=== PATIENT | female | born 1965 | race African-American/Black ===

== ENCOUNTER 2018-12-26 10:27 | Emergency (ER) | payer MEDICAID ==
--- OUTSIDE RECORDS SUMMARY | 2018-12-26 10:34 | XMS REPORT | Continuity of Care Document ---
:1965 External Reference #:[id number] Author Name Neelam Wyatt NP (transmitted by agent of provider Kerrie Moya) Address [address] [place] [id number] Care Team Providers Name Role Phone Aleida Luna NP - Family Care Team Information [employer] [phone] Problems Description No Information Available Social History Type Date Description Comments Sex Unknown ETOH Use Occasionally consumes alcohol Tobacco Use Start: Unknown Patient is a current smoker, smokes every day Recreational Drug Use Current Drug User Marijuana daily Tobacco Use Start: Unknown Heavy tobacco smoker (more than 10 cigarettes/day) Smoking Status Reviewed: 12/10/18 Heavy tobacco smoker (more than 10 cigarettes/day) Exercise Type/Frequency Exercises regularly Allergies, Adverse Reactions, Alerts Active Allergies Reaction Severity Comments Date Latex rash 10/29/2018 Haldol altered sensation to muscles 10/29/2018 Medications Active Medications SIG Qnty Indications Ordering Provider Date Oxycodone-Acetaminophe 1 tab by mouth 12tabs Neelam Hogan 12/10/2018 n every 6 hours ISELA Wyatt 5-325mg Tablets as needed Claritin 1 by mouth Unknown 10mg Capsules every day Proair HFA 2 puffs every 4 Unknown 108(90Base) hours as needed mcg/Act Aerosol Levalbuterol Tartrate as needed Unknown 45mcg/Act Aerosol Metformin HCL 1 by mouth once Unknown 500mg a day Tablets Lisinopril 1 by mouth Unknown 5mg Tablets every day Motrin Ib as needed Unknown 200mg Capsules Immunizations Description No Information Available Vital Signs Date Vital Result Comment 12/10/2018 11:23am Height 67.5 inches 5'7.50" Weight 288.00 lb Heart Rate 76 /min BP Systolic Sitting 154 mmHg BP Diastolic Sitting 106 mmHg Respiratory Rate 16 /min Body Temperature 97.0 F BMI (Body Mass Index) 44.4 kg/m2 11/01/2018 1:55pm Height 67.5 inches 5'7.50" Weight 297.00 lb Heart Rate 72 /min BP Systolic Sitting 138 mmHg BP Diastolic Sitting 88 mmHg Respiratory Rate 18 /min Body Temperature 97.8 F BMI (Body Mass Index) 45.8 kg/m2 Results Description No Information Available Procedures Description No Information Available Medical Devices Description No Information Available Encounters Type Date Location Provider Dx Diagnosis Office Visit 11/01/2018 Surgical Pritesh Lehman, K42.9 Umbilical hernia 1:45p [facility] without obstruction or gangrene Assessments Date Code Description Provider 12/10/2018 K42.9 Umbilical hernia without obstruction or Neelam Wyatt NP gangrene 12/10/2018 Z01.818 Encounter for other preprocedural Neelam Wyatt NP examination 11/01/2018 K42.9 Umbilical hernia without obstruction or Pritesh Lehman MD, FACS gangrene Plan of Treatment Future Appointment(s):01/02/2019 11:00 am - Jil Benitez MD at [facility]01/08/2019 1:00 pm - Neelam Wyatt NP at [facility]12/31/2018 9:30 am - THOM Knight at [facility]12/31/2018 9:30 am - Pritesh Lehman MD, FACS at [facility]12/10/2018 - Neelam Wyatt NPK42.9 Umbilical hernia without obstruction or gangreneFollow up:POSTOP 01/08/19Z01.818 Encounter for other preprocedural examination Functional Status Description No Information Available Mental Status Description No Information Available Referrals Description No Information Available
--- OUTSIDE RECORDS SUMMARY | 2018-12-26 10:34 | XMS REPORT | Continuity of Care Document ---
:1965 External Reference #:[id number] Author Name Kerrie Moya Care Team Providers Name Role Phone Aleida Luna NP Primary Care Physician Unavailable Payers Date Identification Numbers Payment Provider Subscriber Policy Number: [id number] Medicaid [employer] Group Name: 1 1 [address] PayID: [id number] [place] [address] Family History Date Family Member(s) Observation Comments Father No Current Problems Mother Hypertension Mother Stroke Mother Diabetes Type II Mother Deep Venous Thrombosis (DVT) Social History Type Date Description Comments Sex Unknown Marital Status Single Occupation Self Employed ETOH Use Occasionally consumes alcohol Tobacco Use Start: Unknown Patient is a current smoker, smokes every day Recreational Drug Use Current Drug User Marijuana daily Tobacco Use Start: Unknown Heavy tobacco smoker (more than 10 cigarettes/day) Smoking Status Reviewed: 11/01/18 Heavy tobacco smoker (more than 10 cigarettes/day) Exercise Type/Frequency Does not exercise Allergies, Adverse Reactions, Alerts Active Allergies Reaction Severity Comments Date Latex rash 10/29/2018 Haldol altered sensation to muscles 10/29/2018 Medications Active Medications SIG Qnty Indications Ordering Provider Date Claritin 1 by mouth every Unknown 10mg Capsules day Proair HFA 2 puffs every 4 Unknown 108(90Base) hours as needed mcg/Act Aerosol Levalbuterol Tartrate as needed Unknown 45mcg/Act Aerosol Metformin HCL 1 by mouth once Unknown 500mg Tablets a day Lisinopril 1 by mouth every Unknown 5mg Tablets day Vital Signs Date Vital Result Comment 11/01/2018 1:55pm Height 67.5 inches 5'7.50" Weight 297.00 lb Heart Rate 72 /min BP Systolic Sitting 138 mmHg BP Diastolic Sitting 88 mmHg Respiratory Rate 18 /min Body Temperature 97.8 F BMI (Body Mass Index) 45.8 kg/m2 Plan of Treatment Future Appointment(s):01/08/2019 1:00 pm - Neelam Wyatt NP at [facility]12/10/2018 11:00 am - Neelam Wyatt NP at [facility]12/31/2018 9:30 am - THOM Knight at [facility]12/31/2018 9:30 am - Pritesh eLhman MD, FACS at [facility]12/05/2018 3:00 pm - Jil Benitez MD at [facility]11/01/2018 - Pritesh Lehman MD, FACSK42.9 Umbilical hernia without obstruction or gangreneRecommendations:surgical repair with mesh
[2018-12-26 10:50] VITALS: BP 138/83
--- NOTE | 2018-12-26 11:32 | UC ---
Skin Complaint HPI - HPI Summary HPI Summary: 53-year-old female who has had intermittent hives over the past 2 weeks. She has no known exposure however she does state that she has a lot of allergies. Denies any difficulty breathing and no wheezing. She states she has used her EpiPen twice over the past 2 days although she has had no throat closing, no facial swelling mostly some hives on her legs and severe itching. She states she took Benadryl 100 mg at 9:30 this morning. This point in time she is stable and alert and only have is one small hive area on her left thigh. - History of Current Complaint Chief Complaint: UCRash Time Seen by Provider: 12/26/18 11:08 Stated Complaint: rash Hx Obtained From: Patient Hx Last Menstrual Period: 12/11/18 ?: No Onset/Duration: Gradual Onset, Lasting Weeks Timing: Intermittent Episodes Lasting: Onset Severity: Mild Current Severity: Mild Pain Intensity: 0 Location: Diffuse, Other - Today the hives are no small patch on her left thigh , however she does have some itching of her feet. Character: Hives Aggravating Factor(s): Nothing Alleviating Factor(s): Antihistamines, Epinephrine Associated Signs & Symptoms: Positive: Negative Related History: Possible Reaction to: Environmental Exposure, Other: - Patient states she "has a lot of allergies". - Allergy/Home Medications Allergies/Adverse Reactions: Allergies Allergy/AdvReac Type Severity Reaction Status Date / Time haloperidol [From Haldol] Allergy sensitivity Verified 12/26/18 10:53 Latex, Natural Rubber Allergy Rash Verified 12/26/18 10:53 Home Medications: Home Medications Lisinopril TAB* [Prinivil TAB 5 MG*] 1 tab PO DAILY 12/26/18 [History Confirmed 12/26/18] metFORMIN* [Glucophage 500 MG TAB *] 500 tab PO DAILY WITH MEAL 12/26/18 [ History Confirmed 12/26/18] PMH/Surg Hx/FS Hx/Imm Hx Previously Healthy: Yes Endocrine History: Diabetes Respiratory History: Asthma - Surgical History Surgical History: None - Family History Known Family History: Positive: Non-Contributory - Social History Occupation: Employed Full-time Alcohol Use: Occasionally Substance Use Type: None Smoking Status (MU): Light Every Day Tobacco Smoker Review of Systems All Other Systems Reviewed And Are Negative: Yes Skin: Positive: Other - Intermittent hives over the past 2 weeks Is Patient Immunocompromised?: No Physical Exam Triage Information Reviewed: Yes Appearance: Well-Appearing, No Pain Distress, Well-Nourished Vital Signs: Initial Vital Signs Temp 98.2 F 12/26/18 10:42 Pulse 76 12/26/18 10:42 Resp 16 12/26/18 10:42 BP 138/83 12/26/18 10:42 Pulse Ox 97 12/26/18 10:42 Vital Signs Reviewed: Yes Eyes: Positive: Conjunctiva Clear ENT: Positive: Hearing grossly normal, Pharynx normal, TMs normal, Uvula midline Neck: Positive: Supple, Nontender, No Lymphadenopathy Respiratory: Positive: Lungs clear, Normal breath sounds, No respiratory distress, No accessory muscle use. Negative: Accessory muscle use, Rhonchi, Stridor, Wheezing Cardiovascular: Positive: RRR, No Murmur, Pulses Normal, Brisk Capillary Refill Musculoskeletal Exam: Normal Neurological Exam: Normal Psychological Exam: Normal Skin: Positive: Other - Patient presently has itchy feet but she has one small patch of hives on her left thigh. Course/Dx - Course Course Of Treatment: Patient was given prednisone 60 mg by mouth here and I'm going to continue a tapering dose of prednisone. She is going to continue Benadryl 25-50 mg every 6 hours. I'm also going to start her on Pepcid 20 mg by mouth twice a day 7 days. She is to follow-up with her primary care provider if no improvement and if she develops any difficulty breathing, facial swelling, throat closing or worsening hives she's go to the emergency room. - Diagnoses Provider Diagnosis: Hives of unknown origin Discharge ED - Sign-Out/Discharge Documenting (check all that apply): Patient Departure All imaging exams completed and their final reports reviewed: No Studies - Discharge Plan Condition: Fair Disposition: HOME Prescriptions: Famotidine TAB* [Pepcid 20 MG TAB*] 20 mg PO BID 7 Days #14 tab predniSONE TAB* [Deltasone 10 MG TAB*] 10 mg PO DAILY 12 Days #30 tab Patient Education Materials: Urticaria (ED) Referrals: No Primary Care Phys,NOPCP [Primary Care Provider] - [facility] [Outside] Additional Instructions: Continue Benadryl 25-50 mg every 6 hours over the next day or 2. [facility] if you have no improvement by Sunday. Go to the emergency room if you develop any difficulty breathing, throat closing, wheezing or facial swelling. - Billing Disposition and Condition Condition: FAIR Disposition: Home
[2018-12-26] MEDS ORDERED: predniSONE TAB* 20 MG PO ONE (11:37)
== END 2018-12-26 11:47 | disposition home or self-care (01) ==
LOC: UCEAST 10:27
DX: L50.9 Urticaria, unspecified (principal); E11.9 Type 2 diabetes mellitus without complications; J45.909 Unspecified asthma, uncomplicated; Z91.040 Latex allergy status; Z79.84 Long term (current) use of oral hypoglycemic drugs; Z87.891 Personal history of nicotine dependence
CPT/HCPCS: 99212; G0463; J7512

== ENCOUNTER 2019-01-07 17:53 | Emergency (ER) | payer MEDICAID ==
[2019-01-07 18:44] VITALS: BP 146/92
[2019-01-07] MEDS ORDERED: hydrOXYzine HCL TAB* 25 MG PO ONE (19:31)
[2019-01-07] MEDS ORDERED: methylPREDNISolone 125 MG* 2 ML VIAL IM ONE (19:31)
--- NOTE | 2019-01-07 19:32 | UC ---
Skin Complaint HPI - HPI Summary HPI Summary: Increasing erythema and pruritus of left upper arm for the past weeks, and she has completed a tapering dose of prednisone. She continues to have urticaria and severe pruritis. She has a past hx of food and environmental allergies, and recently cleared out a [employer]anj[employer] storage space in [place]. Her initial thought is that this might have been triggered by a spider bite. Notably began use of lisinopril around September, and has been irregular about use of it. Comes this evening with increasing hives causing severe pruritus. Has taken 100mg of benadryl today and continues to have severe itching. Not taking a daily antihistamine, and her tapering dose of prednisone is completed. - History of Current Complaint Chief Complaint: UCAllergicReaction Time Seen by Provider: 01/07/19 19:30 Stated Complaint: RASH Hx Obtained From: Patient Hx Last Menstrual Period: last month Onset/Duration: Gradual Onset, Lasting Weeks Onset Severity: Moderate Current Severity: Moderate Pain Intensity: 7 Location: Diffuse - face, left arm and hand. Character: Swelling, Pruritus, Hives, Redness Aggravating Factor(s): Touch Associated Signs & Symptoms: Positive: Nausea, Vomiting - recently had food poisoning secondary to [employer] food. Related History: Insect Bite/Sting - intiially had a spider bite right lower leg. - Allergy/Home Medications Allergies/Adverse Reactions: Allergies Allergy/AdvReac Type Severity Reaction Status Date / Time haloperidol [From Haldol] Allergy sensitivity Verified 01/07/19 18:44 honey Allergy Hives Verified 01/07/19 18:44 Latex, Natural Rubber Allergy Rash Verified 01/07/19 18:44 spider venom Allergy Rash And Verified 01/07/19 18:44 Itching FRUITS, VEGATABLES AND NUTS Allergy Rash And Uncoded 01/07/19 18:44 Itching Home Medications: Home Medications diphenhydrAMINE HCl [Benadryl Allergy] 100 mg PO ONCE PRN 01/07/19 [History Confirmed 01/07/19] PMH/Surg Hx/FS Hx/Imm Hx Previously Healthy: Yes Respiratory History: Asthma - Surgical History Surgical History: Yes Surgery Procedure, Year, and Place: trach, feeding tube, brain biopsy, hernia repair - Family History Known Family History: Positive: None - no FH of allergic reactions. - Social History Occupation: Employed Full-time - associate veterinarian Alcohol Use: Occasionally Substance Use Type: Marijuana Smoking Status (MU): Light Every Day Tobacco Smoker Amount Used/How Often: 3-5cig/day Review of Systems All Other Systems Reviewed And Are Negative: Yes Constitutional: Positive: Negative Skin: Positive: Rash Eyes: Positive: Negative ENT: Positive: Negative Respiratory: Positive: Shortness Of Breath, Cough Cardiovascular: Positive: Negative Genitourinary: Positive: Negative Motor: Positive: Negative Neurovascular: Positive: Negative Musculoskeletal: Positive: Negative Neurological: Positive: Negative Psychological: Positive: Negative Physical Exam Triage Information Reviewed: Yes Appearance: Well-Appearing, Other: - uncomfortable with itching, constant scratching. Vital Signs: Initial Vital Signs Temp 97.3 F 01/07/19 18:38 Pulse 85 01/07/19 18:38 Resp 20 01/07/19 18:38 BP 146/92 01/07/19 18:38 Pulse Ox 96 01/07/19 18:38 Vital Signs Reviewed: Yes Eye Exam: Normal ENT Exam: Other - large urticarial patch left forehead, with left periorbital edema. Large urticaria from left antecube to axillary area. Left hand with raised erythematous patche. ENT: Positive: Pharynx normal Neck: Positive: Supple, Nontender, No Lymphadenopathy Respiratory: Positive: Lungs clear, Normal breath sounds Cardiovascular: Positive: RRR, No Murmur Re-Evaluation - Re-Evaluation First Eval Re-Evaluation Time: 20:20 Change: Worse Comment: Increased left periorbital edema and persistent large fixed hive on left upper arm; severe pruritus. Second Eval Change: Worse - urticaria worsening, now increased on back and hands. Left eye swelling progressing with lid closure. Course/Dx - Course Course Of Treatment: Given solumedrol, epi x 2, hydroxyzine without improvement-->transferred to ER - Differential Diagnoses - Skin Complaint Differential Diagnoses: Allergic Reaction, Anaphylaxis, Urticaria - Diagnoses Provider Diagnosis: Allergic reaction - Physician Notification/Consults Discussed Patient Care With: Leah Benz Time Discussed With Above Provider: 20:40 Discharge ED - Sign-Out/Discharge Documenting (check all that apply): Patient Departure All imaging exams completed and their final reports reviewed: No Studies - Discharge Plan Condition: Stable Disposition: TRANS HIGHER LVL OF CARE FAC Prescriptions: Famotidine TAB* [Pepcid 20 MG TAB*] 40 mg PO DAILY #60 tab hydrOXYzine HCL TAB* [Atarax 25 MG TAB*] 25 mg PO QID PRN #30 tab PRN Reason: Hives predniSONE TAB* [Deltasone 10 MG TAB*] 60 mg PO DAILY #43 tab Patient Education Materials: Urticaria (ED) Referrals: No Primary Care Phys,NOPCP [Primary Care Provider] - Silke Mantilla MD [Medical Doctor] - Additional Instructions: You have a referral to an fleecer, Dr. Mantilla--please call to schedule a visit. Given severity of reaction, you are being transferred to the emergency room by ambulance for treatment. - Billing Disposition and Condition Condition: STABLE Disposition: Trans Higher Lvl of Care Fac
[2019-01-07] MEDS ORDERED: EPINEPHRINE 1 MG/ML 1 ML VIAL IM ONE ×2 (20:13→20:42)
[2019-01-07] MEDS ORDERED: NS 0.9% 1000 ML** 1,000 ML IV SCH (21:00)
== END 2019-01-07 21:05 | disposition short-term general hospital (02) ==
LOC: UCEAST 17:53
DX: T78.40XA Allergy, unspecified, initial encounter (principal); L50.9 Urticaria, unspecified; J45.909 Unspecified asthma, uncomplicated; F17.210 Nicotine dependence, cigarettes, uncomplicated; R11.2 Nausea with vomiting, unspecified; R06.02 Shortness of breath; R05 Cough; Z88.8 Allergy status to other drugs, medicaments and biological substances; Z91.018 Allergy to other foods; Z91.040 Latex allergy status; Z91.09 Other allergy status, other than to drugs and biological substances; X58.XXXA Exposure to other specified factors, initial encounter; Y92.9 Unspecified place or not applicable
CPT/HCPCS: 96372; 99213; A9270-GY; G0463; J2930

== ENCOUNTER 2019-01-07 21:23 | Emergency (ER) | payer MEDICAID ==
--- NOTE | 2019-01-07 21:49 | ED ---
Skin Complaint - HPI Summary HPI Summary: Pt is a 53 y/o F presenting to the ED brought in by EMS for hives. She states she was getting ready to go shopping this morning when she noticed hives on her L arm, so she went to who were trying to control them. She recently finished a course of Prednisone/Pepcid for the same thing, as these hives initially came on a couple of weeks ago after she visited [place]. She notes she tried a new shower soap and a new laundry detergent. Also, she reports edema of the L eye and a hernia. She denies fever, vomiting, diarrhea. - History of Current Complaint Chief Complaint: EDAllergicReaction Stated Complaint: ALLERGIC REACTION PER EMS Hx Obtained From: Patient Hx Last Menstrual Period: last month Onset/Duration: Started Hours Ago, Still Present Skin Exposure Onset/Duration: Weeks Ago Timing: Constant, Lasting Weeks Onset Severity: Mild Current Severity: Mild Pain Intensity: 3 Pain Scale Used: 0-10 Numeric Skin Location: Diffuse Character: Hives, Redness Aggravating Symptom(s): Nothing Alleviating Symptom(s): Nothing Associated Signs & Symptoms: Rash - Allergy/Home Medications Allergies/Adverse Reactions: Allergies Allergy/AdvReac Type Severity Reaction Status Date / Time haloperidol [From Haldol] Allergy sensitivity Verified 01/07/19 18:44 honey Allergy Hives Verified 01/07/19 18:44 Latex, Natural Rubber Allergy Rash Verified 01/07/19 18:44 spider venom Allergy Rash And Verified 01/07/19 18:44 Itching FRUITS, VEGATABLES AND NUTS Allergy Rash And Uncoded 01/07/19 18:44 Itching PMH/Surg Hx/FS Hx/Imm Hx Previously Healthy: Yes Endocrine/Hematology History: Reports: Hx Diabetes Denies: Hx Thyroid Disease Cardiovascular History: Reports: Hx Hypertension Respiratory History: Reports: Hx Asthma Denies: Hx Chronic Obstructive Pulmonary Disease (COPD) GI History: Denies: Hx Ulcer - Surgical History Surgery Procedure, Year, and Place: trach, feeding tube, brain biopsy, hernia repair Infectious Disease History: No Infectious Disease History: Denies: Hx Hepatitis, Hx Human Immunodeficiency Virus (HIV), Traveled Outside the [place] in Last 30 Days - Family History Known Family History: Negative: Other - allergic reaction - Social History Alcohol Use: Occasionally Hx Substance Use: No Substance Use Type: Reports: Marijuana Hx Tobacco Use: Yes Smoking Status (MU): Light Every Day Tobacco Smoker Amount Used/How Often: 3-5cig/day Review of Systems Negative: Fever Negative: Vomiting, Diarrhea Positive: Rash All Other Systems Reviewed And Are Negative: Yes Physical Exam - Summary Physical Exam Summary: Constitutional: Well-developed, Well-nourished, Alert. (-) Distressed Skin: Warm, Dry. Urticarial to the L medial bicep, L shoulder, and lower back. HENT: Normocephalic; Atraumatic. No pharyngeal edema Eyes: L eye swollen shut. Neck: Musculoskeletal ROM normal neck. (-) JVD, (-) Stridor, (-) Tracheal deviation Cardio: Rhythm regular, rate normal, Heart sounds normal; Intact distal pulses; The pedal pulses are 2+ and symmetric. Radial pulses are 2+ and symmetric. (-) Murmur Pulmonary/Chest wall: Effort normal. (-) Respiratory distress, (-) Stridor, (-) Wheezes, (-) Rales Abd: Soft, (-) tenderness, (-) Distension, (-) Guarding, (-) Rebound Musculoskeletal: (-) Edema Lymph: (-) Cervical adenopathy Neuro: Alert, Oriented x3 Psych: Mood and affect Normal Triage Information Reviewed: Yes Vital Signs On Initial Exam: Initial Vitals Temp Pulse Resp BP Pulse Ox 97.3 F 93 17 142/91 97 01/07/19 21:28 01/07/19 21:28 01/07/19 21:28 01/07/19 21:28 01/07/19 21:28 Vital Signs Reviewed: Yes Procedures - Sedation Patient Received Moderate/Deep Sedation with Procedure: No Diagnostics - Vital Signs Vital Signs Temp Pulse Resp BP Pulse Ox 01/07/19 21:28 97.3 F 93 17 142/91 97 - Laboratory Lab Statement: Any lab studies that have been ordered have been reviewed, and results considered in the medical decision making process. Re-Evaluation - Re-Evaluation 1st re-eval Re-Evaluation Time: 00:10 Change: Improved Comment: Pt is feeling better. We discussed the pros and cons of taking more steroids. She states she is willing to have another short course of steroids, and will be calling her PCP in the morning. Course/Dx - Course Course Of Treatment: Patient is here with an allergic reaction. Patient had a similar reaction a couple weeks ago with a subsequent 2 weeks of hives. Patient was on a course of prednisone which he tapered and stopped yesterday. Patient had recurrence of her rash today. Patient seen at urgent care where she received 2 doses of IM epinephrine. Patient had no anaphylactic symptoms per my exam here. Patient is given Solu-Medrol and Pepcid and monitored with no worsening of her symptoms. Patient did have slight improvement in her rash. Patient is restarted on prednisone after the risks and benefits were discussed with her and she chose starting it. Patient is encouraged helped her primary care doctor for allergy referral. - Diagnoses Provider Diagnoses: Allergic reaction, Urticaria Discharge ED - Sign-Out/Discharge Documenting (check all that apply): Patient Departure - Discharge Plan Condition: Stable Disposition: HOME Prescriptions: predniSONE TAB* [Deltasone 20 MG TAB*] 40 mg PO DAILY 5 Days #10 tab Patient Education Materials: Urticaria (ED) Referrals: [facility] [Outside] Additional Instructions: Follow up with your primary care provider by calling and making an appointment in the morning. Return to the emergency department with any new or worsening symptoms. - Billing Disposition and Condition Condition: STABLE Disposition: Home - Attestation Statements Document Initiated by Stone: Yes Documenting Scribe: Daria Benavides Provider For Whom Stone is Documenting (Include Credential): James Benitez MD. Scribe Attestation: Daria Nolen, jaimeed for James Benitez MD. on 01/08/19 at 0046. Scribe Documentation Reviewed: Yes Provider Attestation: The documentation as recorded by the Daria mora accurately reflects the service I personally performed and the decisions made by , James Benitez MD. Status of Scribe Document: Viewed
[2019-01-07] MEDS: Famotidine IV* 10 MG/ML 2 ML (20 mg) IV SLOW PU ONE (21:52)
[2019-01-07] MEDS: methylPREDNISolone 125 MG* 2 ML VIAL IV ONE (21:52)
[2019-01-08 00:35] VITALS: BP 159/80
== END 2019-01-08 00:22 | disposition home or self-care (01) ==
LOC: ED 21:23
DX: T78.40XA Allergy, unspecified, initial encounter (principal); L50.9 Urticaria, unspecified; X58.XXXA Exposure to other specified factors, initial encounter; E11.9 Type 2 diabetes mellitus without complications; I10 Essential (primary) hypertension; J45.909 Unspecified asthma, uncomplicated; F17.210 Nicotine dependence, cigarettes, uncomplicated; Z79.84 Long term (current) use of oral hypoglycemic drugs; Z79.899 Other long term (current) drug therapy; Z88.8 Allergy status to other drugs, medicaments and biological substances; Z91.040 Latex allergy status
CPT/HCPCS: 96374; 96375; 99283; J2930

== ENCOUNTER 2019-04-15 07:27 | Observation (INO) | payer MEDICAID ==
--- NOTE | 2018-12-10 14:00 | HP ---
Amended report to enter cosigning physician. CC: Dr. Lehman; Aleida Luna NP* PREOPERATIVE HISTORY AND PHYSICAL: DATE OF ADMISSION/SURGERY: This patient is scheduled for same-day surgery admission by Dr. Lehman on 12/31/18. DATE OF PREOPERATIVE HISTORY AND PHYSICAL EXAMINATION: 12/10/18. ATTENDING SURGEON: Dr. Pritesh Lehman* (dictated by Neelam Wyatt NP). CHIEF COMPLAINT: Recurrent umbilical hernia. HISTORY OF PRESENT ILLNESS: The patient is a 53-year-old female, recently evaluated by Dr. Lehman for abdominal pain associated with a previously repaired umbilical hernia. She had open umbilical hernia repair in [place] in June 2017 with mesh. She noted bulging 1 month later after moving. She reports steadily worsening abdominal pain and increasing size of the bulge. She has had 2 episodes where she had nausea and vomiting associated with abdominal pain. The last time was in February and March 2018. She tries to avoid heavy lifting as that causes more pain. She denies any problems with eating or drinking and has had no changes in bowel movements or urination. Dr. Lehman examined the patient and notes a bulging above the umbilicus with a tender nonreducible mass and the hernia defect was not palpable. Dr. Lehman discussed the findings with the patient and has recommended laparoscopic umbilical hernia repair with mesh; he described the nature of the surgical procedure, the typical same-day surgery, and today, I reviewed the typical postoperative care and recovery. The patient has had a chance to ask questions and stated that she understands the information and is satisfied with the answers given to her questions. She will sign surgical consent on the day of surgery. 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 PAST SURGICAL HISTORY: Open umbilical hernia repair with mesh in 2018 in [place] , brain biopsy when she was diagnosed with encephalitis at age 17. She also required a tracheostomy and a gastrostomy for feeding at that time and she did make a complete recovery. MEDICATIONS: 1. Claritin 10 mg p.o. daily. 2. ProAir 2 puffs every 4 hours as needed. 3. Levalbuterol 45 mcg per actuation as needed. 4. Metformin 500 mg p.o. daily and she does not take that regularly and I have asked her to hold that for 24 hours preoperatively. 5. Lisinopril 5 mg p.o. daily in evening when she remembers to take it. ALLERGIES: LATEX, HALDOL, HONEY, and most fruits cause unspecified reactions. FAMILY HISTORY: Mother with history of hypertension, stroke, diabetes, and deep vein thrombosis. No known pulmonary embolism in the family. No known anesthesia complications or bleeding tendencies. SOCIAL HISTORY: She is single. She smokes cigarettes less than 1 pack per day. She rarely drinks alcohol. She smokes marijuana daily. REVIEW OF SYSTEMS: Constitutional: No fevers or chills. She is deliberately trying to lose weight and has lost 12 pounds over the past several months. Endocrine: She has been diagnosed with prediabetes. She is not yet checking fingersticks at home. No known thyroid disease. Hematologic: No easy bruising or bleeding. Respiratory: No chronic cough. No severe dyspnea on exertion. Cardiovascular: No anginal chest pain or palpitations. Gastrointestinal: No recent nausea, vomiting, diarrhea, or constipation. No change in bowel habits. Genitourinary: No dysuria. Musculoskeletal: Bilateral knee and ankle pain. Integumentary: No chronic rashes or skin changes. Neurologic: No headache or blurred vision. No areas of focal weakness or numbness. General: No previous anesthesia complications. No history of deep vein thrombosis or pulmonary embolism; she states that she received several blood transfusions when she was treated for encephalitis as a teenager. PHYSICAL EXAMINATION GENERAL SURVEY: The patient is a 53-year-old morbidly obese female, in no acute distress. VITAL SIGNS: Height 67.5 inches, weight 288 pounds, body mass index 44.4. Blood pressure 138/88, pulse 72 and regular, respiratory rate 18, temperature 97.8 tympanic. HEENT: Benign. NECK: Supple. Well-healed tracheostomy scar. No cervical lymphadenopathy. No thyromegaly. LUNGS: Breath sounds bilaterally clear and equal. HEART: Regular rate and rhythm. No murmurs or rubs appreciated. ABDOMEN: Surgical scar in the epigastrium status post gastrostomy tube; umbilical scar noted; bulging noted above the umbilicus with a tender nonreducible mass approximately the size of an orange. Hernia defect was not palpable. Exam is limited by body habitus. PELVIC EXAM: Deferred. RECTAL EXAM: Deferred. BACK: No CVA tenderness. EXTREMITIES: Warm without edema or skin ulceration. NEUROLOGIC: Alert and oriented x3. Steady gait. SKIN: Warm, dry, intact. IMPRESSION: Recurrent umbilical hernia. PLAN: Same day surgery admission to Dr. Lehman' service on 12/31/18, for laparoscopic repair of recurrent umbilical hernia with mesh. TIME SPENT: [id number] with the patient 60 minutes of which greater than 50% was spent on history taking, physical examination, patient education and coordination of care. ROSE WYATT NP [id number]/CPS #: [id number] NANETTE
--- NOTE | 2019-04-08 20:09 | HP ---
CC: Dr. Lehman; Aleida Luna NP * PREOPERATIVE HISTORY AND PHYSICAL: DATE OF ADMISSION/SURGERY: 04/15/19 This patient is scheduled for same-day surgery admission by Dr. Lehman on 04/15/19. DATE OF PREOPERATIVE HISTORY AND PHYSICAL EXAMINATION: 04/08/19. ATTENDING SURGEON: Dr. Pritesh Lehman * (dictated by Neelam Wyatt NP). CHIEF COMPLAINT: Recurrent umbilical hernia. HISTORY OF PRESENT ILLNESS: The patient is a 53-year-old female, recently evaluated by Dr. Lehman for abdominal pain associated with a previously repaired umbilical hernia. She had open umbilical hernia repair in [place] in June 2017 with mesh. She noted bulging 1 month later after moving. She reports steadily worsening abdominal pain and increasing size of the bulge. She had 2 episodes in March 2018 with nausea and vomiting associated with the abdominal pain, but none recently. She tries to avoid heavy lifting as that causes more pain. She denies any change in bowel habits or dysuria. Dr. Lehman examined the patient and notes a bulging above the umbilicus with a tender nonreducible mass and the hernia defect was not palpable. Dr. Lehman discussed the findings with the patient and has recommended robotic ventral hernia repair with mesh; he described the nature of the surgical procedure, the relevant risks and benefits and alternatives and today I reviewed the typical postoperative care and recovery. The patient has had a chance to ask questions and stated that she understands the information and is satisfied with the answers given to her questions. She will sign surgical consent on the day of surgery. 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 PAST SURGICAL HISTORY: Open umbilical hernia repair with mesh in 2018 in [place] ; brain biopsy when she was diagnosed with encephalitis at age 17 and at that time, she required a tracheostomy and a gastrostomy for feeding. She did make a complete recovery. MEDICATIONS: 1. Flovent inhaler as needed. 2. ProAir 2 puffs every 4 hours as needed. 3. Claritin 10 mg p.o. daily mostly in the summer. 4. Metformin 500 mg p.o. daily and she is not taking that regularly. 5. Amlodipine 5 mg p.o. daily. ALLERGIES: LISINOPRIL caused hives. She is also allergic to LATEX, HONEY, HALDOL, and wool. FAMILY HISTORY: Mother with history of hypertension, stroke, diabetes and deep vein thrombosis. No known pulmonary embolism in the family. No known anesthesia complications or bleeding tendencies. SOCIAL HISTORY: She is single. She stopped smoking cigarettes 3 weeks ago. Prior to that, she was smoking less than 1 pack per day. She rarely drinks alcohol and smokes marijuana frequently. REVIEW OF SYSTEMS: Constitutional: No fevers or chills. She is deliberately trying to lose weight and has lost 12 pounds over the past several months. Endocrine: She has been diagnosed with prediabetes. She is not yet checking fingersticks at home and is not consistently using metformin. No known thyroid disease. Hematologic: No easy bruising or bleeding. She states that she received several blood transfusions as a teenager when she was treated for encephalitis. Respiratory: Over the past 3 weeks, she has developed a persistent cough, currently mildly productive of whitish to yellow sputum. She denies any associated shortness of breath or wheezing. Cardiovascular: No anginal chest pain or palpitations. Gastrointestinal: No recent nausea, vomiting, diarrhea, or constipation or change in bowel habits. Genitourinary: No dysuria. Musculoskeletal: Bilateral knee and ankle pain. Integumentary: No chronic rashes or skin changes. Neurologic: No headaches, blurred vision. No areas of focal weakness or numbness. General: No previous anesthesia complications, no history of deep vein thrombosis or pulmonary embolism. She will use Mucinex and Sambucol cough syrup for respiratory symptoms and she will notify us if she has fever or wheezing or any other new symptoms that would postpone surgery. PHYSICAL EXAMINATION GENERAL SURVEY: The patient is a 53-year-old morbidly obese female, in no acute distress. VITAL SIGNS: Height 67.5 inches, weight 290 pounds, body mass index 44.7. Blood pressure 144/92, pulse 84 and regular, respiratory rate 18, temperature 97.9 tympanic. HEENT: No sore throat. No sinus drainage. NECK: Supple. Well healed tracheostomy scar. No cervical lymphadenopathy. No thyromegaly. LUNGS: Breath sounds bilaterally clear and equal. No wheezing. No dullness to percussion. HEART: Regular rate and rhythm. No murmurs or rubs appreciated. ABDOMEN: Surgical scar in the epigastrium, status post gastrostomy tube. Umbilical scar noted. Bulging noted above the umbilicus with a tender nonreducible mass approximately the size of an orange. Hernia defect was not palpable. Exam is limited by body habitus. PELVIC: Exam deferred. RECTAL: Exam deferred. BACK: No CVA tenderness. EXTREMITIES: Warm without edema or skin ulceration. NEUROLOGIC: Alert and oriented x3. Steady gait. SKIN: Warm, dry, intact. IMPRESSION: Recurrent ventral hernia. PLAN: Same-day surgery admission to Dr. Lehman' service on 04/15/19 for robotic ventral hernia repair with mesh. ROSE WYATT, [employer] [id number]/[facility] #: [id number] MTDD
[~2019-04-15 07:27] MED LIST: Buffered Lidocaine 1% SYRIN* 1 ML/SYRINGE INTRADERM ONE; Famotidine IV* 10 MG/ML 2 ML (20 mg) IV ONE; Lactated Ringers 1000 ML Bag* 1,000 ML IV SCH
[2019-04-15] MEDS ORDERED: Famotidine IV* 10 MG/ML 2 ML (20 mg) ONE ×2 (08:01)
[2019-04-15] MEDS ORDERED: Heparin VIAL(*) 5000 UNITS/ML VIAL (FIVE THOUSAND) ONE ×2 (08:01)
[2019-04-15] MEDS ORDERED: ceFAZolin 2 GM PREMIX in ORs 2 GM/50 ML BAG ONE ×2 (08:01)
[2019-04-15] MEDS ORDERED: ceFAZolin 1 GM ADVAN(*) 1 GM ADDV.VIAL IVPB ONE ×2 (08:01)
[2019-04-15] MEDS ORDERED: Dexamethasone IV* 4 MG/ML 1 ML (4 MG) ONE ×2 (08:48)
[2019-04-15] MEDS ORDERED: Rocuronium* 10 MG/ML VIAL ONE ×4 (08:48→11:13)
[2019-04-15] MEDS ORDERED: Propofol* 10 MG/ML 20 ML BTL ONE ×2 (08:48)
[2019-04-15] MEDS ORDERED: Lidocaine 2% PF * 5 ML VIAL ONE ×2 (08:48)
[2019-04-15] MEDS ORDERED: Ketorolac INJ* 30 MG/ML 1 ML VIAL ONE ×2 (08:48)
[2019-04-15] MEDS ORDERED: Ondansetron INJ* 2 MG/ML VIAL ONE ×4 (08:48→18:29)
[2019-04-15] MEDS ORDERED: Midazolam* 1 MG/ML 5 ML VIAL (5 MG) ONE ×2 (08:48)
[2019-04-15] MEDS ORDERED: fentaNYL* 50 MCG/ML 2 ML VIAL (100 MCG VIAL) ONE ×10 (08:48→16:36)
[2019-04-15] MEDS ORDERED: Ondansetron INJ* 2 MG/ML VIAL IV PRN ×2 (11:10→15:09)
[2019-04-15] MEDS ORDERED: Naloxone* 0.4 MG/ML 1 ML VIAL IV PRN (11:10)
[2019-04-15] MEDS ORDERED: Levalbuterol 0.63MG/3ML NEB* UNIT OF USE INH PRN (11:10)
[2019-04-15] MEDS ORDERED: Sugammadex * 500 MG/5 ML VIAL IV PUSH ONE ×2 (14:21)
[2019-04-15] MEDS ORDERED: HYDROmorphone INJ1* 1 MG/ML SYRINGE ONE (14:24)
[2019-04-15] MEDS ORDERED: hydrALAZINE IV* 20 MG/ML VIAL ONE ×2 (14:27)
[2019-04-15] MEDS: fentaNYL* 50 MCG/ML 2 ML VIAL (100 MCG VIAL) IV PRN ×3 (15:00→16:38)
[2019-04-15] MEDS ORDERED: Docusate CAP* 100 MG PO PRN (15:09)
[2019-04-15] MEDS ORDERED: HYDROmorphone INJ* 0.5 MG/0.5 ML SYRINGE IV SLOW PU PRN (15:09)
[2019-04-15] MEDS ORDERED: oxyCODONE/Acetamin 5/325 MG* TAB PO PRN (15:09)
[2019-04-15] MEDS ORDERED: Albuterol HFA INHALER* 8 gm MDI INH PRN (15:20)
[2019-04-15] MEDS ORDERED: Levalbuterol HFA INHALER* 1 PUFF MDI INH PRN (15:20)
[2019-04-15] MEDS ORDERED: Ketorolac INJ* 30 MG/ML 1 ML VIAL IV SCH (16:00)
[2019-04-15] MEDS ORDERED: Lactated Ringers 1000 ML Bag* 1,000 ML IV SCH (16:00)
[2019-04-15] MEDS ORDERED: Levalbuterol 0.63MG/3ML NEB* UNIT OF USE INH ONE ×2 (16:04)
[2019-04-15] MEDS: Ketorolac INJ* 30 MG/ML 1 ML VIAL IV SCH (20:50)
[2019-04-15] MEDS ORDERED: Heparin VIAL(*) 5000 UNITS/ML VIAL (FIVE THOUSAND) SUBCUT ONE (22:00)
[2019-04-15] MEDS: Heparin VIAL(*) 5000 UNITS/ML VIAL (FIVE THOUSAND) SUBCUT SCH (22:31)
[2019-04-16] MEDS: Acetaminophen TAB* 325 MG PO PRN ×2 (00:26→11:53)
--- NOTE | 2019-04-16 00:43 | OP ---
CC: Aleida Luna NP * DATE OF OPERATION: 04/15/19 - ROOM #331 DATE OF : 69 SURGEON: Pritesh Lehman MD ASSISTANTS: 1. Dr. Ramsay. 2. JOYCE Shay ANESTHESIOLOGIST: Dr. Leander Ellis. ANESTHESIA: General endotracheal. PRE-OP DIAGNOSIS: Ventral hernia. POST-OP DIAGNOSES: 1. Ventral hernia. 2. Recurrent umbilical hernia. OPERATIVE PROCEDURE: Robotic repair of ventral and recurrent umbilical hernia with primary closure and preperitoneal mesh placement. ESTIMATED BLOOD LOSS: Less than 20 mL. IV FLUIDS: Crystalloids. SPECIMEN: None. DRAINS: None. COMPLICATIONS: None. COUNTS: The instrument, needle, and sponge counts were correct. DESCRIPTION OF PROCEDURE: The patient was brought to the operating room and placed on the table supine. Sequential compression devices were placed on both lower extremities. General anesthesia was administered. She was prepped and draped in the usual sterile fashion. She received appropriate intravenous antibiotics. Time-out was performed. Local anesthetic was infiltrated into the skin and soft tissue prior to making incision. Entry to the abdomen was through a left upper quadrant incision using an 8-mm optical trocar. After accessing the peritoneal cavity, carbon dioxide was insufflated to a pressure of 12 mmHg. Under direct visualization, additional 8 mm trocars were placed in the left abdomen laterally and then further medially in the left upper quadrant. A 12-mm bladeless trocar was placed in the left upper quadrant laterally. Inspection with the camera did reveal that there was a recurrent umbilical hernia as well as a supraumbilical hernia. There were adhesions of the stomach to the anterior abdominal wall in the left upper quadrant where a previous gastrostomy had been performed. Adhesiolysis was performed initially laparoscopically prior to placing all of the ports, however, once the ports were placed, the robot was docked in the standard fashion. The omentum that was contained within the supraumbilical hernia was reduced. There was a mass, which was adherent to the fascia and this was noted to be the previously placed umbilical hernia mesh. This appeared to be sutured with Ethibond suture at 2 points. However, this was not covering the hernia defect. Omentum was completely freed from the mesh and then the mesh and the Ethibond sutures were removed from the fascia using combination of sharp and cautery dissection. The preperitoneal dissection was undertaken starting on the left side of the abdomen and extending this across the abdomen reducing the umbilical hernia sac and the supraumbilical hernia sac and there was a third hernia just adjacent and inferior. The peritoneal flap was raised all the way across the abdomen to the right side. There was a bit of redundancy in the peritoneum due to the hernia sac components that were reduced. Examining each of the hernia defects, it was found that they were about a craniocaudal length of about 8 centimeters and 4 cm in the lateral direction. It was decided these could be closed primarily and this was done with running 0 Stratafix suture. This was done with 2 sutures, one that was started inferior to the defects and imbricating the abdominal wall, then bringing the defects together and a second suture started above the defects and running these in a similar fashion so that the 2 sutures were overlapping in 2 layers. Subsequently, a 10 x 15 cm oval mesh patch was selected for repair. This was a Bard Ventrio mesh with the echo positioning system. This was introduced through the 12-mm port and then it was positioned in the standard fashion to cover the area of the repair thus reinforcing it and the mesh was secured with a circumferential 3-0 V-Loc 90 suture with PDS that was run in 2 sutures in opposite directions overlapping the sutures over about a quarter of the distance of the mesh. Additional 3-0 Vicryl sutures were used to secure the mesh in the mid portions taking quilting type sutures to reduce any space. Lastly, the peritoneum itself was run closed with 2 sutures of 3-0 V-Loc 90 suture. After completing this, the mesh patch that had been excised, was retrieved using a retrieval bag through the 12 mm port site. All the instrumentation, needles, and sponge counts were correct. The ports removed under direct visualization. Carbon dioxide was released. Skin incisions were closed with 4-0 Monocryl in subcuticular fashion and DermaFlex was applied to the wounds. The patient tolerated the procedure well and was extubated and transferred to recovery room in stable condition. [id number]/[facility] #: [id number] [facility]
[2019-04-16] MEDS: Ketorolac INJ* 30 MG/ML 1 ML VIAL IV SCH ×3 (02:26→13:53)
[2019-04-16] MEDS: Heparin VIAL(*) 5000 UNITS/ML VIAL (FIVE THOUSAND) SUBCUT SCH ×2 (06:28→13:52)
[2019-04-16 08:14] VITALS: BP 159/90
--- NOTE | 2019-04-16 10:16 | PN ---
Progress Note - Progress Note Date of Service: 04/16/19 SOAP: Subjective: NAD - flatus - BM, c/o nausea this morning [] Objective: Vital Signs Temp 99.3 F 04/16/19 08:13 Pulse 86 04/16/19 08:13 Resp 12 04/16/19 08:13 BP 159/90 04/16/19 08:13 Pulse Ox 98 04/16/19 08:13 Intake & Output 04/15/19 04/16/19 04/16/19 18:59 06:59 18:59 Intake Total 2220 50 Output Total 600 1825 500 Balance 1620 -1775 -500 Weight 296 lb Intake: IV Fluids 2100 LR 2100 Oral 120 50 Output: Urine 600 1525 500 Emesis 300 PEX Gen: NAD Chest: CTA CVS: RRR ABD: obese, Incisional Tenderness, Incisions C/D/I EXT: calves soft non tender [] Assessment: 53 yo female POD 1 s/p robotic umbilical/abdominal hernias, post operative pain requiring IV analgesia awaiting return bowel function [] Plan: Start clears, convert to PO analgesia. Encouraged deep breathing, IS, OOB Ambulate. Prob D/C Later today. []
== END 2019-04-16 14:45 | disposition home or self-care (01) ==
LOC: OR 07:27 → SSU 18:37
PROVIDERS: ADMIT Surgery; ATTEND Surgery
DX: K43.9 Ventral hernia without obstruction or gangrene (principal); K42.9 Umbilical hernia without obstruction or gangrene; Z79.899 Other long term (current) drug therapy; E66.01 Morbid (severe) obesity due to excess calories; R73.03 Prediabetes; I10 Essential (primary) hypertension; Z87.891 Personal history of nicotine dependence
CPT/HCPCS: 81025; 88300; 96374; 96375; 96376; A9270-GY; C1781; G0378; J0360; J0690; J1100; J1170; J1644; J1885; J2250; J2405; J2704; J3010

== ENCOUNTER 2019-08-02 07:48 | Emergency (ER) | payer MEDICAID ==
--- OUTSIDE RECORDS SUMMARY | 2019-08-02 08:00 | XMS REPORT | Continuity of Care Document ---
:1965 External Reference #:[id number] Author Name Daniel Shah M.D. (transmitted by agent of provider Sammi Bowles) Address [address] [place] [address] Care Team Providers Name Role Phone Aleida Luna MEDICAL TRANSCRIPTION EDITOR-C - Family Care Team Information Packaging Materials Inspector Problems Active Problems Provider Date Myopia Daniel Shah M.D. Onset: 06/16/2019 Regular astigmatism Daniel Shah M.D. Onset: 06/16/2019 Prediabetes Onset: Social History Type Date Description Comments Sex Unknown ETOH Use Rarely consumes alcohol Tobacco Use Start: Unknown End: Patient is a former smoker Recreational Drug Use Denies Drug Use Smoking Status Reviewed: 06/16/19 Patient is a former smoker Allergies, Adverse Reactions, Alerts Active Allergies Reaction Severity Comments Date Latex 06/16/2019 Honey 06/16/2019 Fruit 06/16/2019 Spider Bites 06/16/2019 Haldol 06/16/2019 Lisinopril 06/16/2019 Medications Active Medications SIG Qnty Indications Ordering Provider Date Motrin Ib as needed Unknown 200mg Tablets Glucosamine two tablets daily Unknown Chondroitin 1500 Complex 1500Com Capsules Immunizations Description No Information Available Vital Signs Description No Information Available Results Description No Information Available Procedures Date Code Description Status 06/16/2019 32204 Determination Of Refractive State Completed 06/16/2019 48941 New Patient Comprehensive Exam Completed Medical Devices Description No Information Available Encounters Description No Information Available Assessments Date Code Description Provider 06/16/2019 E11.9 Type 2 diabetes mellitus without Daniel Shah M.D. complications 06/16/2019 H43.811 Vitreous degeneration, right eye Daniel Shah M.D. 06/16/2019 H04.123 Dry eye syndrome of bilateral lacrimal Daniel Shah M.D. glands Plan of Treatment 06/16/2019 - Daniel Shah M.D.E11.9 Type 2 diabetes mellitus without complicationsComments:Smoking can increase the risk of developing or worsening any eye related disease, as well as affect your overall health. If you are a smoker, we strongly recommend that you quit.If you are not a smoker, we strongly recommend that you do not start. You have diabetes. I do not detect any changes in both of your retinas from diabetes at this time. Proper control of your diabetes is important for the health of your eyes. Changes in your eyes from diabetes can happen without symptoms, so it is important that you have your eyes examined.Follow up:1 Year Follow Up DFE You can expect to have your eyes dilated at your next visit. If Dr. Shah orders any additional testing, it may require extra time. We recommend that you bring sunglasses, as dilation drops often make you light sensitive until they wear off. We always recommend you bring someone to drive you home if you are uncomfortable driving with your eyes dilated. If you have any questions before your next visit, feel free to call our office at .H43.811 Vitreous degeneration, right eyeComments:You have a Posterior Vitreous Detachment in your right eye. If you have any changes in your floatersor flashing lights, please contact this office.H04.123 Dry eye syndrome of bilateral lacrimal glandsComments:Both of your eyes appear to be dry. Use artificial tears as directed. You can use the tears more often if you are reading a book or are on the computer, as we tend to blink less, making our eyes dry out more.[facility] offers a few items in our optical department to help alleviate dry eye symptoms. COMMON , OVER THE COUNTER BRANDS I RECOMMEND ARE SYSTANE AND REFRESH. USE EITHER DROP 2 -3X/DAY FOR DRYNESS Functional Status Description No Information Available Mental Status Description No Information Available Referrals Description No Information Available
--- OUTSIDE RECORDS SUMMARY | 2019-08-02 08:00 | XMS REPORT | Continuity of Care Document ---
:1965 External Reference #:[id number] Author Name Daniel Shah M.D. Address [address] [place] [address] Problems Active Problems Provider Date Myopia Daniel [...] Available Results Description No Information Available Procedures Description [...] glands Plan of Treatment 06/16/2019 - Daniel Zablocki, M.D.E11.9 Type 2 diabetes mellitus without complicationsComments:Smoking [...] feel free to call our office at .H4.352 Vitreous degeneration, right eyeComments:You have a Posterior [...] blink less, making our eyes dry out more.[facility] offers a few items in our optical department to help alleviate dry eye symptoms. COMMON , OVER THE COUNTER BRANDS I RECOMMEND ARE SYSTANE AND REFRESH. USE EITHER DROP 2 -3X/DAY FOR DRYNESS Functional Status Description No Information Available Mental Status Description No Information Available Referrals Description No Information Available
[2019-08-02] MEDS ORDERED: Ketorolac *IM* INJ* 60 MG/2 ML VIAL IM ONE (08:27)
--- NOTE | 2019-08-02 09:47 | ED ---
Upper Extremity Pain - HPI Summary HPI Summary: Patient is a 53-year-old otherwise healthy obese female who presents to the ED with right shoulder pain 1 month. Patient denies any trauma or injury. 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 She's been off work 1 month. She states despite this, she continues to have shoulder pain. At this point she is unable to abduct the arm. She does state she continues to use it and cleans her house, although this causes worsening pain to the arm. Denies any radiation of pain. Pain is located over the R shoulder most notably to the R anterior shoulder. Denies numbness or tingling. Ibuprofen without relief. Continues to use ice and heat. Pt states she was able to see a physical therapist via telehealth who instructed her to perform exercises. - History of Current Complaint Chief Complaint: Leonardj Stated Complaint: R SHOULDER PAIN PER PT Time Seen by Provider: 08/02/19 08:11 Hx Obtained From: Patient Hx Last Menstrual Period: last month Onset/Duration: Atraumatic, Still Present Timing: Constant Severity Initially: Moderate Severity Currently: Moderate Pain Location: Shoulder Character: Aching Aggravating Factor(s): Movement, Lifting, Flexion, Extension, Abduction, Adduction Alleviating Factor(s): Rest Associated Signs & Symptoms: Negative: Redness, Bruising, Weakness, Numbness/ Tingling Related History: Dominant Hand Right - Risk Factors Non-Orthopedic Risk Factor: Negative DVT Risk Factors: Negative Septic Arthritis Risk Factor: Negative Compartment Syndrome Risk Factors: Pain - Allergies/Home Medications Allergies/Adverse Reactions: Allergies Allergy/AdvReac Type Severity Reaction Status Date / Time Latex, Natural Rubber Allergy Severe Rash Verified 08/02/19 07:53 lisinopril Allergy Severe hives,facial Verified 08/02/19 07:53 swelling spider venom Allergy Severe Anaphylatic Verified 08/02/19 07:53 Shock wool Allergy Severe welts and Verified 08/02/19 07:53 itchy haloperidol [From Haldol] Allergy Unknown sensitivity Verified 08/02/19 07:53 honey Allergy Hives Verified 08/02/19 07:53 FRUITS, VEGATABLES AND NUTS Allergy Intermediate Rash And Uncoded 04/15/19 08:25 Itching Home Medications: Home Medications RX: Albuterol inh POWDER (NF) [Proair Respiclick] 2 puff INH Q4H PRN 12/27/18 [ History Confirmed 04/08/19] RX: EPINEPHrine [Epipen] 1 applic INJ DAILY PRN 12/27/18 [History Confirmed ] RX: Glucosam/Chondr/Collagn/Hyalur [Glucosamine & Chondroitin Cap] 2 cap PO QAM 12/27/18 [History Confirmed 04/15/19] RX: Ibuprofen TAB* [Motrin TAB* 600 MG] 600 mg PO Q6H PRN 12/27/18 [History Confirmed 04/15/19] RX: Levalbuterol HFA INHALER* [Xopenex Hfa Inhaler*] 2 puff INH Q6H PRN [History Confirmed 04/15/19] RX: diphenhydrAMINE HCl [Benadryl Allergy] 100 mg PO ONCE PRN 01/07/19 [History Confirmed 04/08/19] RX: hydrOXYzine HCL TAB* [Atarax 25 MG TAB*] 25 mg PO QID PRN #30 tab 01/07/19 [ Rx Confirmed 04/08/19] Ketorolac TAB * [Toradol TAB *] 10 mg PO Q6H #16 tab 08/02/19 [Rx] RX: predniSONE 50 mg TAB [Deltasone 50 mg TAB] 50 mg PO DAILY #5 tab MDD 1 08/01 [Rx] PMH/Surg Hx/FS Hx/Imm Hx Previously Healthy: Yes Endocrine/Hematology History: Reports: Hx Diabetes Denies: Hx Thyroid Disease Cardiovascular History: Reports: Hx Hypertension Respiratory History: Reports: Hx Asthma, Hx Sleep Apnea - WILL BE HAVING A SLEEP TEST.- not done yet Denies: Hx Chronic Obstructive Pulmonary Disease (COPD) GI History: Reports: Hx Gastroesophageal Reflux Disease, Hx Jaundice - at Denies: Hx Ulcer Musculoskeletal History: Reports: Hx Arthritis Sensory History: Reports: Hx Contacts or Glasses - GLASSES Denies: Hx Hearing Aid Opthamlomology History: Reports: Hx Contacts or Glasses - GLASSES Neurological History: Reports: Hx Headaches, Hx Migraine, Hx Seizures - ENCEPHALITS RELATED NONE SINCE A TEENAGER Psychiatric History: Reports: Hx Depression - Cancer History Hx Chemotherapy: No - Surgical History Surgery Procedure, Year, and Place: trach, feeding tube, brain biopsy, hernia repair Hx Anesthesia Reactions: No - Immunization History Hx Pertussis Vaccination: No Immunizations Up to Date: Yes Infectious Disease History: No Infectious Disease History: Denies: Hx Hepatitis, Hx Human Immunodeficiency Virus (HIV), Traveled Outside the [place] in Last 30 Days - Family History Known Family History: Negative: Other - allergic reaction - Social History Occupation: Employed Full-time Lives: With Family Alcohol Use: Occasionally Hx Substance Use: No Substance Use Type: Reports: Marijuana Substance Use Comment - Amount & Last Used: daily Hx Tobacco Use: Yes Smoking Status (MU): Former Smoker Type: Cigarettes Amount Used/How Often: 3-5cig/day Have You Smoked in the Last Year: Yes Review of Systems Negative: Fever, Chills, Fatigue, Skin Diaphoresis Negative: Palpitations, Chest Pain Negative: Shortness Of Breath, Cough Genitourinary: Negative Positive: no symptoms reported, see HPI Positive: Arthralgia - right shoulder pain. Negative: Myalgia Negative: Rash, Bruising Neurological/Mental Status: Negative All Other Systems Reviewed And Are Negative: Yes Physical Exam Triage Information Reviewed: Yes Vital Signs On Initial Exam: Initial Vitals Temp Pulse Resp BP Pulse Ox 97.6 F 83 16 157/88 99 08/02/19 07:49 08/02/19 07:49 08/02/19 07:49 08/02/19 07:49 08/02/19 07:49 Vital Signs Reviewed: Yes Appearance: Positive: Well-Appearing, Well-Nourished, Obese Skin: Positive: Warm, Skin Color Reflects Adequate Perfusion Head/Face: Positive: Normal Head/Face Inspection Eyes: Positive: EOMI, LESLIE, Conjunctiva Clear Neck: Positive: Supple, No Lymphadenopathy Respiratory/Lung Sounds: Positive: Clear to Auscultation, Breath Sounds Present Cardiovascular: Positive: RRR, Pulses are Symmetrical in both Upper and Lower Extremities Musculoskeletal: Positive: Normal, Strength/ROM Intact Neurological: Positive: Speech Normal Psychiatric: Positive: Affect/Mood Appropriate AVPU Assessment: Alert Procedures - Sedation Patient Received Moderate/Deep Sedation with Procedure: No Diagnostics - Vital Signs Vital Signs Temp Pulse Resp BP Pulse Ox 08/02/19 07:49 97.6 F 83 16 157/88 99 - Laboratory Lab Statement: Any lab studies that have been ordered have been reviewed, and results considered in the medical decision making process. Course/Dx - Course Course Of Treatment: Pt continues to endorse R shoulder pain despite using the arm less. Symptoms are aggravated by movement, better with rest and internal rotation and adduction. Active abduction of the arm results in discomfort and pt unable to abduct past 45 degrees. Passive abduction results in little dicomfort to 90 degrees. Above 90 degrees, pt enodrses pain. Good warp coiler strength. No deformities noted. No pain at rest. No posterior cervical spine tenderness. Gaines parminder not performed d/t pain. Neer test positive. Unable to perform empty can test. Xray obtained which shows evidence of calcific tendonitis. Pt given toradol in the ED with good relief. She is prescribed toradol and 5 days steroids. Encouraged f/u with ortho. - Diagnoses Provider Diagnoses: Tendonitis - Critical Care Time Critical Care Statement: Critical care time is provided exclusive of any time spent performing procedures. Discharge ED - Sign-Out/Discharge Documenting (check all that apply): Patient Departure - Discharge Plan Condition: Good Disposition: HOME Prescriptions: Ketorolac TAB * [Toradol TAB *] 10 mg PO Q6H #16 tab RX: predniSONE 50 mg TAB [Deltasone 50 mg TAB] 50 mg PO DAILY #5 tab MDD 1 Patient Education Materials: Calcific Tendinitis (ED) Referrals: Nithin Mares MD [Medical Doctor] - Aleida Luna NP [Primary Care Provider] - Additional Instructions: Continue with ice and heat Continue pendulum exercises as shown to prevent frozen shoulder Follow-up with orthopedics Refrain from overuse of the arm Toradol four times daily x 4 days - DO NOT TAKE IBUPROFEN OR OTHER NSAIDS WHILE TAKING THIS MEDICATION Prednisone once daily x 5 days - take in the AM - Billing Disposition and Condition Condition: GOOD Disposition: Home
[2019-08-02 11:04] VITALS: BP 150/79
== END 2019-08-02 10:45 | disposition home or self-care (01) ==
LOC: ED 07:48
DX: M77.9 Enthesopathy, unspecified (principal); Z87.891 Personal history of nicotine dependence; E11.9 Type 2 diabetes mellitus without complications; Z79.84 Long term (current) use of oral hypoglycemic drugs; I10 Essential (primary) hypertension; J45.909 Unspecified asthma, uncomplicated; F32.9 Major depressive disorder, single episode, unspecified; G47.30 Sleep apnea, unspecified; K21.9 Gastro-esophageal reflux disease without esophagitis
CPT/HCPCS: 96372; 99282; J1885

== ENCOUNTER 2020-11-02 23:17 | Observation (INO) ==
[2020-11-03 01:00] LABS: ABS Eosinophils 0.2 10^3/ul (0-0.6); ABS Lymphocytes 2.8 10^3/ul (1.0-4.8); ABS Monocytes 0.5 10^3/ul (0-0.8); ABS Neutrophils 5.6 10^3/ul (1.5-7.7); Eosinophil % 2.3 %; Hematocrit 36 % (35-47); Hemoglobin 12.8 g/dL (12.0-16.0); Lymphocyte % 30.1 %; Mean Corpuscular HGB Conc 35 g/dL (31-36); Mean Corpuscular Hemoglobin 31 pg (27-31); Mean Corpuscular Volume 87 fL (80-97); Mean Platelet Volume 10.4 fL (7.4-10.4); Platelet Count 212 10^3/uL (150-450); Red Blood Count 4.16 10^6 /uL (3.70-4.87); Red Cell Distribution Width 15 % (10-15); White Blood Count 9.1 10^3/uL (3.5-10.8)
[2020-11-03 01:09] LABS: Albumin 4.1 g/dL (3.2-5.2); Albumin/Globulin Ratio 1.5 (1-3); Calcium 9.7 mg/dL (8.6-10.3); EGFR African American 79.3 (>60); EGFR Non-African American 65.5 (>60); Globulin 2.7 g/dL (2-4); Total Bilirubin 0.4 mg/dL (0.2-1.0); Total Protein 6.8 g/dL (6.4-8.9)
[2020-11-03 01:10] LABS: Troponin I 0.01 ng/mL (<0.03)
[2020-11-03] MEDS ORDERED: Albuterol 2.5mg/3 ml (0.083%) NEB.SOLN INH PRN (04:35)
[2020-11-03] MEDS: Enoxaparin 40 MG/0.4 ML SYR SUBCUT SCH (06:09)
[2020-11-03] MEDS ORDERED: Aminophylline 25 MG/ML VIAL ONE (09:45)
[2020-11-03] MEDS ORDERED: Regadenoson 0.4 MG/5 ML SYRINGE ONE ×2 (09:45)
[2020-11-04] MEDS: Enoxaparin 40 MG/0.4 ML SYR SUBCUT SCH (09:02)
[2020-11-04 15:31] VITALS: BP 149/76
== END 2020-11-04 19:30 | disposition home or self-care (01) ==
LOC: MEDTELE 23:17 → ED 23:17
PROVIDERS: ADMIT Internal Medicine; ATTEND Hospitalist

== ENCOUNTER 2021-02-25 06:33 | Observation (INO) ==
[~2021-02-25 06:33] MED LIST changes: +Buffered Lidocaine 1% SYRIN 1 ml INTRADERM ONE; -Buffered Lidocaine 1% SYRIN* 1 ML/SYRINGE INTRADERM ONE; +Clindamycin 900 MG/D5W BAG 900 MG/50 ML BAG IVPB ONE; +DiMENhydriNATE IV 50 mg/ml 1 ml VIAL IV PUSH PRN; +Famotidine IV 10 MG/ML 2 ml VIAL (20 mg) IV ONE; -Famotidine IV* 10 MG/ML 2 ML (20 mg) IV ONE; +Heparin 5000 UNITS/ML 1 mL VIAL SUBCUT ONE; -Lactated Ringers 1000 ML Bag* 1,000 ML IV SCH; +Lactated Ringers 1000 ml BAG 1,000 ML IV SCH; +Naloxone 0.4 mg VIAL 0.4 mg/ml 1 ml VIAL IV PRN; +Ondansetron ODT 4 mg TAB 4 MG TAB PO ONE; +cefTRIAXone 2 GM ADDV.VIAL 2 GM in NS 0.9% 100 ml BAG 100 ML IV ONE; +fentaNYL 100 mcg/2 ml 50 MCG/ML VIAL IV PRN
[2021-02-25] MEDS ORDERED: DiMENhydriNATE IV 50 mg/ml 1 ml VIAL IM ONE (06:44)
[2021-02-25] MEDS ORDERED: Heparin 5000 UNITS/ML 1 mL VIAL ONE ×2 (06:44→08:00)
[2021-02-25] MEDS ORDERED: DiMENhydriNATE IV 50 mg/ml 1 ml VIAL ONE (06:44)
[2021-02-25] MEDS ORDERED: Famotidine IV 10 MG/ML 2 ml VIAL (20 mg) ONE ×2 (06:45)
[2021-02-25] MEDS ORDERED: Ondansetron 4 mg VIAL 2 MG/ML 2 ml VIAL IM ONE ×2 (06:52→14:53)
[2021-02-25] MEDS ORDERED: Dexamethasone IV 4 MG/ML VIAL 1 ml VIAL ONE (06:52)
[2021-02-25] MEDS ORDERED: Propofol 10 MG/ML 20 ML BTL ONE ×2 (06:52)
[2021-02-25] MEDS ORDERED: fentaNYL 250 mcg/5 ml 50 MCG/ML 5 ml VIAL (250 MCG) ONE ×4 (06:52→12:34)
[2021-02-25] MEDS ORDERED: Rocuronium 50 mg VIAL 10 mg/ml 5 ml VIAL (50 mg) ONE ×2 (06:52→09:50)
[2021-02-25] MEDS ORDERED: Rocuronium 50 mg VIAL 10 mg/ml 5 ml VIAL (50 mg) INJ ONE ×2 (06:52→09:50)
[2021-02-25] MEDS ORDERED: Lidocaine 2% PF 5 ML VIAL ONE ×2 (06:52)
[2021-02-25] MEDS ORDERED: Ondansetron 4 mg VIAL 2 MG/ML 2 ml VIAL ONE ×2 (06:52→14:53)
[2021-02-25] MEDS ORDERED: Midazolam 2 mg/2 ml VIAL 1 mg/ml 2 ml VIAL (2 mg) ONE ×2 (06:52)
[2021-02-25] MEDS ORDERED: Ondansetron ODT 4 mg TAB 4 MG TAB ONE ×2 (07:31)
[2021-02-25] MEDS ORDERED: Chlorhexidine MOUTHWASH 0.12% 15 ML UDC ONE ×4 (08:01→10:08)
[2021-02-25] MEDS ORDERED: Iohexol 180 (CONTRAST) 10 ML SDV IV ONE ×2 (08:01→09:27)
[2021-02-25] MEDS ORDERED: Bupivacaine 0.5% 50 ML MDV VIAL ONE ×2 (08:01)
[2021-02-25] MEDS ORDERED: cefTRIAXone 2 GM ADDV.VIAL ONE (08:25)
[2021-02-25] MEDS ORDERED: cefTRIAXone 2 GM ADDV.VIAL IV ONE (08:25)
[2021-02-25] MEDS ORDERED: Clindamycin 900 MG/D5W BAG 900 MG/50 ML BAG IVPB ONE ×2 (08:46)
[2021-02-25] MEDS ORDERED: Succinylcholine 200 mg VIAL 20 mg/ml 10 ml VIAL (200 mg) ONE ×2 (08:54)
[2021-02-25] MEDS ORDERED: Gabapentin 600 mg TAB (NF) PO SCH (09:00)
[2021-02-25] MEDS ORDERED: Gentamicin ADULT 300 MG in NS 0.9% 100 ml BAG 100 ML IVPB ONE ×2 (09:00→15:00)
[2021-02-25] MEDS ORDERED: Iohexol 180 (CONTRAST) 20 ML SDV IV ONE (09:27)
[2021-02-25] MEDS ORDERED: Phenylephrine IV 10 MG/ML 1 ml VIAL ONE ×2 (09:31)
[2021-02-25] MEDS ORDERED: diPHENhydraMINE IV 50 MG/ML 1 ml VIAL (BENADRYL) IM ONE (10:26)
[2021-02-25] MEDS ORDERED: diPHENhydraMINE IV 50 MG/ML 1 ml VIAL (BENADRYL) ONE (10:26)
[2021-02-25] MEDS ORDERED: Metoprolol Tartrate 5 mg VIAL 5 ml VIAL (1 mg/ml) ONE ×2 (11:40)
[2021-02-25] MEDS ORDERED: Propofol 10 mg/ml 100 ML BTL 200 ML ONE ×2 (11:53)
[2021-02-25] MEDS ORDERED: Labetalol IV 5 MG/ML 20 ml VIAL ONE ×2 (12:38→18:02)
[2021-02-25] MEDS ORDERED: Labetalol IV 5 MG/ML 20 ml VIAL IV ONE ×2 (12:38→18:02)
[2021-02-25] MEDS ORDERED: hydrALAZINE 20 mg/ml 1 ML Vial IV ONE ×4 (13:20→17:03)
[2021-02-25] MEDS ORDERED: Acetaminophen IV 1 GM/100ML 100 ML IV ONE ×2 (14:29)
[2021-02-25] MEDS ORDERED: HYDROmorphone 1 MG/1 ML SYRINGE IM ONE (14:32)
[2021-02-25] MEDS ORDERED: HYDROmorphone 1 MG/1 ML SYRINGE ONE (14:32)
[2021-02-25] MEDS ORDERED: Clindamycin 900 MG/D5W BAG IVPB ONE (15:00)
[2021-02-25] MEDS ORDERED: Levalbuterol HFA INHALER MDI ONE ×2 (15:02)
[2021-02-25] MEDS ORDERED: oxyCODONE/Acetamin 5/325 mg TAB PO PRN (17:01)
[2021-02-25] MEDS: hydrALAZINE 20 mg/ml 1 ML Vial IV IV SLOW PU PRN ×2 (17:04→17:34)
[2021-02-25] MEDS ORDERED: Levalbuterol HFA INHALER MDI INH PRN (17:07)
[2021-02-25] MEDS: Labetalol IV 5 MG/ML 20 ml VIAL IV PUSH PRN ×5 (18:03→20:34)
[2021-02-25] MEDS ORDERED: Dextrose 50% Syringe 50 ml 25 GM/50 ML SYRINGE IV PUSH PRN (20:36)
[2021-02-25] MEDS ORDERED: hydrALAZINE 20 mg/ml 1 ML Vial IV IV SLOW PU PRN (20:37)
[2021-02-26] MEDS ORDERED: Albuterol HFA INHALER 8 gm MDI INH PRN (00:25)
[2021-02-26] MEDS ORDERED: Calcium Carb (TUMS) 500 mg CHEW TAB PO PRN (00:45)
[2021-02-26] MEDS ORDERED: [UNRECOGNIZED DRUG - OTHER] PO SCH (09:00)
[2021-02-26 12:08] VITALS: BP 127/88
[2021-02-26] MEDS ORDERED: Mometasone 220 MCG MDI INH SCH (21:00)
[2021-02-28] MEDS ORDERED: Scopolamine PATCH Remove NOTE PATCH OFF SCH (07:00)
== END 2021-02-26 13:56 | disposition home or self-care (01) ==
LOC: OR 06:33 → MEDTELE 06:33
PROVIDERS: ADMIT Obstetrics & Gynecology; ATTEND Obstetrics & Gynecology